=== PATIENT | female | born 1985 | race African-American/Black ===

== ENCOUNTER 2021-04-21 22:11 | Emergency (ER) | payer BC ==
--- NOTE | 2021-04-21 22:43 | EDM.PDOC ---
ED HPI GENERAL MEDICAL PROBLEM - General Chief Complaint: Exposure to Heat or Cold Stated Complaint: DEHYDRATION Time Seen by Provider: 04/21/21 22:20 Source of Information: Reports: Patient, EMS, RN History Limitations: Reports: No Limitations - History of Present Illness INITIAL COMMENTS - FREE TEXT/NARRATIVE: chief complaint: dehydration THis is a 35 year female presents to the ER via Ambulance, she has been camping for the past 3 days. Started to feel sick about 2 days ago. She felt nauseated and light heated. Today was really bad. tried drinking a lot of water but felt so over heated, weak, dizzy. Her Friends called the [facility]- who call the ambulance and applied ice packs and she felt better. vaccinated from Covid 19 in 10/2020 denies any exposure to Covid-19 all family and friends are healthy. Onset: Gradual Onset Date: 04/19/21 Duration: Day(s):, Getting Worse Location: Reports: Generalized Severity: Moderate Improves with: Reports: Cold Therapy, Other (drinking water) Worsens with: Reports: Other (environment- heat) Associated Symptoms: Reports: Fever/Chills, Headaches, Loss of Appetite, Nausea/Vomiting, Weakness Treatments VERIFICATION ENGINEER: Reports: Cold Therapy, Isotonic Fluid, IV/IO, See EMS Report - Related Data Allergies Allergy/AdvReac Type Severity Reaction Status Date / Time azithromycin [From Zithromax] Allergy Airway Verified 04/21/21 22:26 Tightness Home Meds: Home Meds NK [No Known Home Meds] 04/21/21 [History] Past Medical History HEENT History: Reports: Impaired Vision ENVIRONMENTAL SERVICES LEAD History: Reports: Endometriosis - Infectious Disease History Infectious Disease History: Reports: Chicken Pox - Past Surgical History Female Surgical History: Reports: Other (See Below) Other Female Surgeries/Procedures: fallopian tubes removed Social & Family History - Tobacco Use Tobacco Use Status *Q: Never Tobacco User - Caffeine Use Caffeine Use: Reports: Coffee - Recreational Drug Use Recreational Drug Use: No - Living Situation & Occupation Living situation: Reports: with Family Occupation: Employed (lives with Family in [place], employed [employer] no children) ED ROS GENERAL - Review of Systems Review Of Systems: See Below Constitutional: Reports: Fever, Chills, Malaise, Weakness, Fatigue HEENT: Reports: No Symptoms Respiratory: Reports: No Symptoms Cardiovascular: Reports: No Symptoms Endocrine: Reports: Fatigue GI/Abdominal: Reports: Diarrhea (2-3 loose stools per day since camping, denies any bloody or black stools), Decreased Appetite, Nausea (this has resolved with IV fluids given by EMS) : Reports: No Symptoms Musculoskeletal: Reports: Muscle Pain Skin: Reports: No Symptoms Neurological: Reports: No Symptoms Psychiatric: Reports: No Symptoms Hematologic/Lymphatic: Reports: No Symptoms Immunologic: Reports: No Symptoms ED EXAM, GENERAL - Physical Exam Exam: See Below Exam Limited By: No Limitations General Appearance: Alert, WD/WN, No Apparent Distress, Other (neat and well groomed, pleasant female.) Eye Exam: Bilateral Eye: EOMI, Normal Inspection, PERRL Ears: Normal External Exam, Normal Canal, Hearing Grossly Normal, Normal TMs Ear Exam: Bilateral Ear: Auricle Normal, Canal Normal, TM normal Nose: Normal Inspection, Normal Mucosa, No Blood Throat/Mouth: Normal Inspection, Normal Lips, Normal Teeth, Normal Gums, Normal Oropharynx, Normal Voice, No Airway Compromise Head: Atraumatic, Normocephalic Neck: Normal Inspection, Supple, Non-Tender, Full Range of Motion Respiratory/Chest: No Respiratory Distress, Lungs Clear, Normal Breath Sounds, No Accessory Muscle Use, Chest Non-Tender Cardiovascular: Normal Peripheral Pulses, Regular Rate, Rhythm, No Edema, No Gallop, No JVD, No Murmur, No Rub Peripheral Pulses: 2+: Radial (L), Radial (R), Dorsalis Pedis (L), Dorsalis Pedis (R) GI/Abdominal: Normal Bowel Sounds, Soft, Non-Tender, No Organomegaly, No Distention, No Abnormal Bruit, No Mass (Female) Exam: Deferred Rectal (Female) Exam: Deferred Back Exam: Normal Inspection, Full Range of Motion, NT Extremities: Normal Inspection, Normal Range of Motion, Non-Tender, Normal Capillary Refill, No Pedal Edema Neurological: Alert, Oriented, CN II-XII Intact, Normal Cognition, Normal Gait, Normal Reflexes, No Motor/Sensory Deficits Psychiatric: Normal Affect, Normal Mood Skin Exam: Warm, Dry, Intact, Normal Color, No Rash Lymphatic: No Adenopathy Course - Vital Signs Last Recorded V/S: Last Vital Signs Temp 97.9 F 04/21/21 22:26 Pulse 68 07/28/21 22:26 Resp 14 04/21/21 22:26 BP 121/74 04/21/21 22:26 Pulse Ox 100 04/21/21 22:26 - Orders/Labs/Meds Orders: Active Orders 24 hr Category Date Time Status Sodium Chloride 0.9% [Normal Saline] 1,000 ml Med 04/21/21 22:45 Active IV ASDIRECTED Medication Orders Sodium Chloride (Normal Saline) 1,000 mls @ 999 mls/hr IV ASDIRECTED CAREY Last Admin: 04/21/21 22:37 Dose: 999 mls/hr Documented by: CHELSEA Labs: Laboratory Tests 04/21/21 04/21/21 04/21/21 Range/Units 22:36 22:40 22:40 WBC 4.0 L (4.5-11.0) K/uL RBC 4.08 (3.30-5.50) M/uL Hgb 11.2 L (12.0-15.0) g/dL Hct 32.6 L (36.0-48.0) % MCV 80 (80-98) fL MCH 28 (27-31) pg MCHC 34 (32-36) % Plt Count 204 (150-400) K/uL Neut % (Auto) 46.9 (36-66) % Lymph % (Auto) 40.3 (24-44) % Rice % (Auto) 11.9 H (2-6) % Eos % (Auto) 0.7 L (2-4) % Baso % (Auto) 0.2 (0-1) % Sodium 140 (140-148) mmol/L Potassium 4.1 (3.6-5.2) mmol/L Chloride 107 (100-108) mmol/L Carbon Dioxide 24 (21-32) mmol/L Anion Gap 8.7 (5.0-14.0) mmol/L BUN 7 (7-18) mg/dL Creatinine 0.8 (0.6-1.0) mg/dL Est Cr Clr Drug Dosing 73.36 mL/min Estimated GFR (MDRD) > 60 (>60) Glucose 86 (74-106) mg/dL Calcium 8.1 L (8.5-10.1) mg/dL Urine Color Other A (YELLOW) Urine Appearance Clear (CLEAR) Urine pH 7.0 (5.0-8.0) Ur Specific [place] 1.010 (1.008-1.030) Urine Protein Negative (NEGATIVE) mg/dL Urine Glucose (UA) Negative (NEGATIVE) mg/dL Urine Ketones Negative (NEGATIVE) mg/dL Urine Occult Blood Negative (NEGATIVE) Urine Nitrite Negative (NEGATIVE) Urine Bilirubin Negative (NEGATIVE) Urine Urobilinogen 0.2 (0.2-1.0) EU/dL Ur Leukocyte Esterase Negative (NEGATIVE) Urine RBC Not seen (0-5) Urine WBC Not seen (0-5) Ur Epithelial Cells Rare Amorphous Sediment Not seen Urine Bacteria Few Urine Mucus Not seen Meds: Medications Generic Name Dose Route Start Last Admin Trade Name Freq PRN Reason Stop Dose Admin Sodium Chloride 1,000 mls @ 999 mls/hr 04/21/21 22:45 04/21/21 22:37 Normal Saline IV 999 mls/hr ASDIRECTED [facility] Administration - Re-Assessments/Exams Free Text/Narrative Re-Assessment/Exam: 04/21/21 22:48 discussed with Ms. Livingston, will do labs to rule out any acute illness will give IV fluids to rehydrate Ms. Livingston agree with plan of care. 04/21/21 23:23 labs are all normal discussed heat exhaustion and dehydration will discharge with Friend. advise to return if has any concerns. agrees with plan of care. Departure - Departure Time of Disposition: 23:25 Disposition: Home, Self-Care 01 Condition: Good Clinical Impression: Heat exhaustion, Dehydration - Discharge Information *PRESCRIPTION DRUG MONITORING PROGRAM REVIEWED*: Not Applicable *COPY OF PRESCRIPTION DRUG MONITORING REPORT IN PATIENT JENI: Not Applicable Instructions: Preventing Heat Exhaustion, Adult, Dehydration, Adult, [id number] Referrals: PCP,None [Primary Care Provider] - Forms: ED Department Discharge Care Plan Goals: Dehydration and heat exhaustion -IV Normal Saline for rehydration - improved with IV fluids -labs CBC, BMP and Urine- negative for illness or acute infection -given information related to Heat Exhaustion and Dehydration -return to ER if develops any return of symptoms or has any concerns. Sepsis Event Note (ED) - Evaluation Sepsis Screening Result: No Definite Risk - Focused Exam Vital Signs: Vital Signs Temp Pulse Resp BP Pulse Ox 04/21/21 22:26 97.9 F 68 14 121/74 100 04/21/21 22:17 97.9 F 68 14 121/74 100 - Problem List & Annotations (1) Dehydration SNOMED Code(s): 05996960 Code(s): E86.0 - DEHYDRATION Status: Acute Priority: High Current Visit: Yes (2) Heat exhaustion SNOMED Code(s): 09833235 Code(s): T67.5XXA - HEAT EXHAUSTION, UNSPECIFIED, INITIAL ENCOUNTER Status: Acute Priority: High Current Visit: Yes Qualifiers: Encounter type: initial encounter Qualified Code(s): T67.5XXA - Heat exhaustion, unspecified, initial encounter - Problem List Review Problem List Initiated/Reviewed/Updated: Yes - My Orders Last 24 Hours: My Active Orders 04/21/21 22:45 Sodium Chloride 0.9% [Normal Saline] 1,000 ml IV ASDIRECTED - Assessment/Plan Last 24 Hours: My Active Orders 04/21/21 22:45 Sodium Chloride 0.9% [Normal Saline] 1,000 ml IV ASDIRECTED Plan: Dehydration -IV Normal Saline for rehydration- improved with IV rehydration -labs CBC, BMP and Urine all normal no signs of acute illness or infection -given information related to Heat Exhaustion and Dehydration -return to ER if develops any return of symptoms or has any concerns.
[2021-04-21] MEDS ORDERED: Sodium Chloride 0.9% 1,000 ML IV SCH (22:45)
== END 2021-04-21 23:43 | disposition home or self-care (01) ==
LOC: JP.ED 22:11
DX: T67.5XXA Heat exhaustion, unspecified, initial encounter (principal); E86.0 Dehydration; Z88.1 Allergy status to other antibiotic agents
CPT/HCPCS: 36415; 80048; 81001; 85025; 99284; J7030